=== PATIENT | male | born 1985 | race Caucasian/White ===

== ENCOUNTER 2024-04-06 02:59 | Emergency (ER) | payer MEDICAID, OTHER ==
[~2024-04-06] VITALS: Ht 167.6 cm; Wt 81.8 kg
[2024-04-06 03:04] VITALS: BP 144/90; PULSE 131; RESP 20; TEMP 98.3; O2SAT 98
[2024-04-06] MEDS: ACETAMINOPHEN EXTRA STRENGTH 500 MG TAB PO ONE (03:41)
[2024-04-06] MEDS: KETOROLAC 30 MG/ML VIAL IM ONE (03:41)
[2024-04-06] MEDS: diphenhydrAMINE 50 MG CAP PO ONE (03:41)
[2024-04-06] MEDS: diazePAM 5 MG TAB PO ONE (03:42)
== END 2024-04-06 03:42 | disposition home or self-care (01) ==
LOC: MED 02:59
DX: S16.1XXA Strain of muscle, fascia and tendon at neck level, initial encounter (principal); S13.4XXA Sprain of ligaments of cervical spine, initial encounter; M25.512 Pain in left shoulder; X58.XXXA Exposure to other specified factors, initial encounter; Y92.89 Other specified places as the place of occurrence of the external cause; Y93.89 Activity, other specified; Y99.8 Other external cause status
CPT/HCPCS: 99284; Q0163; J1885